=== PATIENT | male | born 1960 | race Two or more races ===

== ENCOUNTER 2024-01-10 10:24 | Emergency (ER) | payer OTHER ==
[~2024-01-10] VITALS: Ht 172.7 cm; Wt 88.5 kg
[2024-01-10] MEDS ORDERED: PRILOSEC OTC20 MG PO (10:56)
[2024-01-10] MEDS ORDERED: ONDANSETRON HCL 2 MG/ML VIAL IV ONE (11:30)
[2024-01-10] MEDS ORDERED: KETOROLAC TROMETHAMINE 60 MG VIAL IM ONE (11:30)
[2024-01-10] MEDS ORDERED: 0.9 % SODIUM CHLORIDE 1,000 ML IV ONE (11:30)
[2024-01-10] MEDS ORDERED: FAMOtidine 10 MG/ML (4ML VIAL) IV ONE (11:30)
[2024-01-10 12:27] LABS: HEMATOCRIT 42.3 % (39.0-48.0); HEMOGLOBIN 15.1 g/dL (13-16.00); MEAN CELL VOLUME 93.2 fL (80.0-100.00); MEAN CORPUSCULAR HEMOGLOBIN 33.3 pg (27.00-32.0); MEAN CORPUSCULAR HGB CONC 35.8 g/dl (32.0-36.0); PLATELET COUNT 235 K/uL (150-450); RED BLOOD COUNT 4.54 M/uL (4.00-6.00); RED CELL DISTRIBUTION WIDTH 12.3 % (11.5-14.5)
[2024-01-10 12:33] LABS: URINE APPEARANCE Cloudy; URINE BILIRRUBIN Negative (NEGATIVE); URINE BLOOD Negative; URINE COLOR Yellow; URINE GLUCOSE Negative (NEGATIVE); URINE KETONE Negative (NEGATIVE); URINE LEUKOCYTE Negative; URINE NITRATE Negative; URINE PROTEIN Negative (NEGATIVE); URINE UROBILINOGEN 0.2 E.U./dl
[2024-01-10 12:34] LABS: URINE BACTERIA 6.2 uL (0.0-1933); URINE EPITHELIAL CELLS 1.5 uL (0.0-38.8); URINE RBC 16.6 uL (0.0-20.8); URINE WBC 2.7 uL (0.0-23.2)
[2024-01-10 12:48] LABS: URINE CRYSTALS MODERATE /HPF
[2024-01-10 13:04] LABS: ALBUMIN 3.4 gm/dL (3.4-5.0); BILIRUBIN TOTAL 0.73 mg/dL (0.3-1.2); CALCIUM 9.6 mg/dL (8.5-10.1); CREATININE SERUM 1.06 mg/dL (0.70-1.30); GFR 71.02; GLOBULINA 3.5 G/DL (2.4-3.5); INR 0.99; PARTIAL THROMBOPLASTIN TIME 28.2 SECONDS (22.0-34.0); POTASSIUM 4.75 mEq/L (3.5-5.1); PROTHROMBIN TIME 10.8 SECONDS (9.0-11.5); TOTAL PROTEIN 6.9 gm/dL (6.4-8.2)
== END 2024-01-10 16:50 | disposition home or self-care (01) ==
LOC: ER 10:26
PROVIDERS: General Practice
DX: R10.31 Right lower quadrant pain (principal); K40.20 Bilateral inguinal hernia, without obstruction or gangrene, not specified as recurrent

== ENCOUNTER 2024-03-20 13:04 | Emergency (ER) | payer OTHER ==
[~2024-03-20] VITALS: Ht 172.7 cm; Wt 87.1 kg
[~2024-03-20 13:04] MED LIST: PRILOSEC OTC20 MG PO
[2024-03-20] MEDS ORDERED: KETOROLAC TROMETHAMINE 30 MG VIAL IV ONE (14:30)
[2024-03-20] MEDS ORDERED: 0.9 % SODIUM CHLORIDE 500 ML IV ONE (14:30)
[2024-03-20] MEDS ORDERED: FAMOTIDINE/PF 20 MG/2 ML VIAL IV ONE (14:30)
[2024-03-20 14:53] LABS: HEMATOCRIT 45.4 % (39.0-48.0); HEMOGLOBIN 15.8 g/dL (13-16.00); MEAN CELL VOLUME 92.7 fL (80.0-100.00); MEAN CORPUSCULAR HEMOGLOBIN 32.3 pg (27.00-32.0); MEAN CORPUSCULAR HGB CONC 34.8 g/dl (32.0-36.0); PLATELET COUNT 248 K/uL (150-450); RED BLOOD COUNT 4.89 M/uL (4.00-6.00); RED CELL DISTRIBUTION WIDTH 12.1 % (11.5-14.5)
[2024-03-20 14:55] LABS: PH,URINE 7.5 (5.0-8.0); URINE APPEARANCE Clear; URINE BILIRRUBIN Negative (NEGATIVE); URINE BLOOD Negative; URINE COLOR Yellow; URINE GLUCOSE Negative (NEGATIVE); URINE KETONE Negative (NEGATIVE); URINE LEUKOCYTE Negative; URINE NITRATE Negative; URINE PROTEIN Negative (NEGATIVE)
[2024-03-20 14:59] LABS: URINE BACTERIA 0 uL (0.0-1933); URINE EPITHELIAL CELLS 0.3 uL (0.0-38.8); URINE RBC 0.1 uL (0.0-20.8); URINE WBC 1.5 uL (0.0-23.2)
[2024-03-20 15:11] LABS: INR 1.03; PARTIAL THROMBOPLASTIN TIME 28.2 SECONDS (22.0-34.0); PROTHROMBIN TIME 11.2 SECONDS (9.0-11.5)
[2024-03-20 15:19] LABS: ALBUMIN 3.5 gm/dL (3.4-5.0); BILIRUBIN TOTAL 0.79 mg/dL (0.3-1.2); CALCIUM 9.5 mg/dL (8.5-10.1); CREATININE SERUM 1.04 mg/dL (0.70-1.30); GFR 72.36; GLOBULINA 3.5 G/DL (2.4-3.5); POTASSIUM 4.56 mEq/L (3.5-5.1)
== END 2024-03-20 21:06 | disposition home or self-care (01) ==
LOC: ER 13:06
PROVIDERS: Nurse Practitioner Family
DX: R10.31 Right lower quadrant pain (principal); I10 Essential (primary) hypertension; K27.9 Peptic ulcer, site unspecified, unspecified as acute or chronic, without hemorrhage or perforation; K29.70 Gastritis, unspecified, without bleeding

== ENCOUNTER → 2024-03-28 | Emergency (ER) | payer OTHER ==
[~2024-03-28] VITALS: Ht 172.7 cm; Wt 88.5 kg
[~2024-03-28] MED LIST changes: +FAMOtidine 10 MG/ML (4ML VIAL) IV PUSH ONE; +ONDANSETRON HCL 2 MG/ML VIAL IM ONE
[2024-03-28 21:56] LABS: HEMOGLOBIN 15.8 g/dL (13-16.00); MEAN CELL VOLUME 92.9 fL (80.0-100.00); MEAN CORPUSCULAR HEMOGLOBIN 32.5 pg (27.00-32.0); PLATELET COUNT 231 K/uL (150-450); RED BLOOD COUNT 4.84 M/uL (4.00-6.00); RED CELL DISTRIBUTION WIDTH 12.1 % (11.5-14.5)
[2024-03-28 22:27] LABS: ALBUMIN 3.2 gm/dL (3.4-5.0); BILIRUBIN TOTAL 0.47 mg/dL (0.3-1.2); CALCIUM 8.9 mg/dL (8.5-10.1); CREATININE SERUM 1.26 mg/dL (0.70-1.30); GFR 57.99; GLOBULINA 3.5 G/DL (2.4-3.5); POTASSIUM 4.26 mEq/L (3.5-5.1); TOTAL PROTEIN 6.7 gm/dL (6.4-8.2)
== END | disposition left against medical advice (07) ==
LOC: ER 20:40
PROVIDERS: General Practice
DX: R11.10 Vomiting, unspecified (principal); K21.9 Gastro-esophageal reflux disease without esophagitis
CPT/HCPCS: 36415; 93005; 96365; 96372; 99282; J2405; J3490

== ENCOUNTER 2024-04-16 06:34 | Emergency (ER) | payer OTHER ==
[~2024-04-16] VITALS: Ht 172.7 cm; Wt 87.1 kg
[~2024-04-16 06:34] MED LIST changes: -FAMOtidine 10 MG/ML (4ML VIAL) IV PUSH ONE; -ONDANSETRON HCL 2 MG/ML VIAL IM ONE
[2024-04-16 08:55] LABS: HEMATOCRIT 46.2 % (39.0-48.0); HEMOGLOBIN 16.2 g/dL (13-16.00); MEAN CELL VOLUME 91.3 fL (80.0-100.00); MEAN CORPUSCULAR HGB CONC 35.1 g/dl (32.0-36.0); PLATELET COUNT 240 K/uL (150-450); RED BLOOD COUNT 5.06 M/uL (4.00-6.00); RED CELL DISTRIBUTION WIDTH 12.5 % (11.5-14.5)
== END 2024-04-16 12:39 | disposition home or self-care (01) ==
LOC: ER 06:36
PROVIDERS: Emergency Medicine
DX: R51.9 Headache, unspecified (principal); R11.10 Vomiting, unspecified; Z20.822 Contact with and (suspected) exposure to COVID-19; I10 Essential (primary) hypertension

== ENCOUNTER 2024-08-10 12:09 | Emergency (ER) | payer OTHER ==
[~2024-08-10] VITALS: Ht 172.7 cm; Wt 87.1 kg
[2024-08-10] MEDS ORDERED: GAVISCON EXTRA355 ML PO (12:37)
[2024-08-10] MEDS ORDERED: 0.9 % SODIUM CHLORIDE 1,000 ML IV SCH (13:43)
[2024-08-10 14:38] LABS: HEMATOCRIT 47.3 % (39.0-48.0); HEMOGLOBIN 16.4 g/dL (13-16.00); MEAN CELL VOLUME 93.2 fL (80.0-100.00); MEAN CORPUSCULAR HEMOGLOBIN 32.3 pg (27.00-32.0); MEAN CORPUSCULAR HGB CONC 34.7 g/dl (32.0-36.0); PLATELET COUNT 240 K/uL (150-450); RED BLOOD COUNT 5.08 M/uL (4.00-6.00); RED CELL DISTRIBUTION WIDTH 12.3 % (11.5-14.5)
[2024-08-10 15:17] LABS: ALBUMIN 3.9 gm/dL (3.4-5.0); BILIRUBIN TOTAL 0.74 mg/dL (0.3-1.2); CALCIUM 10.2 mg/dL (8.5-10.1); CREATININE SERUM 1.02 mg/dL (0.70-1.30); GLOBULINA 3.8 G/DL (2.4-3.5); POTASSIUM 4.3 mEq/L (3.5-5.1); TOTAL PROTEIN 7.7 gm/dL (6.4-8.2)
== END 2024-08-10 17:13 | disposition home or self-care (01) ==
LOC: ER 12:09
PROVIDERS: Emergency Medicine
DX: R10.84 Generalized abdominal pain (principal)

== ENCOUNTER 2024-10-04 15:55 | Emergency (ER) | payer OTHER ==
[~2024-10-04] VITALS: Ht 180.3 cm; Wt 86.2 kg
[~2024-10-04 15:55] MED LIST changes: +GAVISCON EXTRA355 ML PO
[2024-10-04] MEDS ORDERED: ZESTRIL2.5 MG (17:07)
[2024-10-04] MEDS ORDERED: CLONIDINE HCL 0.1 MG TABLET PO ONE ×2 (17:14→17:15)
[2024-10-04] MEDS ORDERED: KETOROLAC TROMETHAMINE 60 MG VIAL IM ONE ×2 (17:14→17:15)
[2024-10-04 17:34] LABS: BASO % 0.3 % (0.1-1.2); EOS # 0.05 (0.04-0.54); EOS % 0.5 % (0.7-7.0); HEMATOCRIT 41.6 % (40.1-51.0); HEMOGLOBIN 14.9 g/dL (13.7-17.5); LYMPH % 17.3 % (19.3-53.1); MEAN CORPUSCULAR HEMOGLOBIN 31.6 pg (25.6-32.2); MONO # 0.93 (0.24-0.82); MONO % 9.5 % (4.7-12.5); NEUT # 7.02 (1.56-6.13); NEUT % 71.4 % (34.0-71.1); PLATELET COUNT 262 K/uL (163-369); RED BLOOD COUNT 4.72 M/uL (4.63-6.08); RED CELL DISTRIBUTION WIDTH 11.1 % (11.6-14.4)
[2024-10-04 18:00] LABS: ALBUMIN 3.5 gm/dL (3.4-5.0); BILIRUBIN TOTAL 0.69 mg/dL (0.3-1.2); CALCIUM 8.7 mg/dL (8.5-10.1); CREATININE SERUM 1.38 mg/dL (0.70-1.30); GFR 52.21; GLOBULINA 3.5 G/DL (2.4-3.5); POTASSIUM 4.48 mEq/L (3.5-5.1)
[2024-10-04 18:06] LABS: COVID-19 AG NEGATIVE (NEGATIVE)
[2024-10-04 18:08] LABS: INFLUENZA A AG NEGATIVE (NEGATIVE); INFLUENZA B AG POSITIVE (NEGATIVE)
[2024-10-04] MEDS ORDERED: OSELTAMIVIR PHOSPHATE 75 MG CAPSULE PO ONE ×2 (18:15→18:24)
[2024-10-04] MEDS ORDERED: OSEL75CA PO (18:20)
== END 2024-10-04 18:39 | disposition home or self-care (01) ==
LOC: ER 16:15
PROVIDERS: General Practice
DX: J10.1 Influenza due to other identified influenza virus with other respiratory manifestations (principal); G44.209 Tension-type headache, unspecified, not intractable; Z20.822 Contact with and (suspected) exposure to COVID-19; I10 Essential (primary) hypertension

== ENCOUNTER 2025-01-01 11:53 | Emergency (ER) | payer OTHER ==
[~2025-01-01] VITALS: Ht 172.7 cm; Wt 87.1 kg
[~2025-01-01 11:53] MED LIST changes: +OSEL75CA PO; +ZESTRIL2.5 MG
[2025-01-01] MEDS ORDERED: KETOROLAC TROMETHAMINE 60 MG VIAL IM ONE (14:00)
[2025-01-01] MEDS ORDERED: FAMOTIDINE/PF 20 MG/2 ML VIAL IV ONE (14:00)
[2025-01-01] MEDS ORDERED: MAG HYDROX/ALUMINUM HYD/SIMETH 30 ML BLIST.PACK PO ONE (14:00)
[2025-01-01 14:23] LABS: BASO % 0.3 % (0.1-1.2); EOS # 0.03 (0.04-0.54); EOS % 0.3 % (0.7-7.0); LYMPH # 1.18 (1.18-3.74); LYMPH % 13.4 % (19.3-53.1); MEAN PLATELET VOLUME 9.50 fl (9.4-12.4); MONO # 0.94 (0.24-0.82); MONO % 10.7 % (4.7-12.5); NEUT # 6.54 (1.56-6.13); NEUT % 74.6 % (34.0-71.1); RED CELL DISTRIBUTION WIDTH 11.0 % (11.6-14.4)
[2025-01-01 14:56] LABS: ALT/SGPT 25.0 U/L (12-78); AST/SGOT 15.0 U/L (15-37); BILIRUBIN TOTAL 0.53 mg/dL (0.3-1.2); BUN CREA RATIO 13.0 (7.0-25.0); CREATININE SERUM 1.06 mg/dL (0.70-1.30); GFR 70.79; GLOBULINA 3.9 G/DL (2.4-3.5); GLUCOSE FASTING 95.0 mg/dL (65-100); OSMOLALITY SERUM 280.0 MOSM/KG (275-295)
== END 2025-01-01 16:30 | disposition home or self-care (01) ==
LOC: ER 11:53
PROVIDERS: General Practice
DX: R09.81 Nasal congestion (principal); R07.89 Other chest pain; I10 Essential (primary) hypertension

== ENCOUNTER 2025-02-14 17:44 | Emergency (ER) | payer OTHER ==
[~2025-02-14] VITALS: Ht 172.7 cm; Wt 87.1 kg
[~2025-02-14 17:44] MED LIST changes: +ZTLIDO1 EACH PO
[2025-02-14] MEDS ORDERED: PRILOSEC10 MG PO (19:25)
[2025-02-14] MEDS ORDERED: FAMOTIDINE/PF 20 MG/2 ML VIAL IV ONE (20:00)
[2025-02-14] MEDS ORDERED: MORPHINE SULFATE 4 MG/ML CARTRIDGE IV ONE (20:00)
[2025-02-14 21:28] LABS: BASO % 0.4 % (0.1-1.2); EOS # 0.02 (0.04-0.54); EOS % 0.2 % (0.7-7.0); LYMPH # 2.13 (1.18-3.74); LYMPH % 22.4 % (19.3-53.1); MEAN PLATELET VOLUME 9.60 fl (9.4-12.4); MONO # 1.03 (0.24-0.82); MONO % 10.8 % (4.7-12.5); NEUT # 6.23 (1.56-6.13); NEUT % 65.7 % (34.0-71.1); RED CELL DISTRIBUTION WIDTH 11.2 % (11.6-14.4)
[2025-02-14 21:52] LABS: ERYTHROCYTE SEDIMENTATION RATE 4 mm/hr (0-20)
[2025-02-14 21:54] LABS: INR 1.05
[2025-02-14 22:21] LABS: ALT/SGPT 24.0 U/L (12-78); AST/SGOT 17.0 U/L (15-37); BILIRUBIN TOTAL 1.18 mg/dL (0.3-1.2); BUN CREA RATIO 17.0 (7.0-25.0); CREATININE SERUM 1.79 mg/dL (0.70-1.30); GFR 38.67; GLOBULINA 3.9 G/DL (2.4-3.5); GLUCOSE FASTING 184.0 mg/dL (65-100); OSMOLALITY SERUM 289.0 MOSM/KG (275-295)
[2025-02-14 23:28] LABS: URINE APPEARANCE Cloudy; URINE BILIRRUBIN Small (NEGATIVE); URINE BLOOD Negative; URINE COLOR Dark Yellow; URINE GLUCOSE Negative (NEGATIVE); URINE KETONE 15 (NEGATIVE); URINE LEUKOCYTE Trace; URINE NITRATE Negative; URINE PROTEIN 30 (NEGATIVE); URINE UROBILINOGEN 1.0 E.U./dl
[2025-02-14 23:32] LABS: URINE BACTERIA 54.0 uL (0.0-1933); URINE EPITHELIAL CELLS 33.2 uL (0.0-38.8); URINE RBC 12.6 uL (0.0-20.8); URINE WBC 11.5 uL (0.0-23.2)
[2025-02-15 00:06] LABS: URINE CAST > 21.83 uL (0.0-1.40)
[2025-02-15 00:07] LABS: URINE CRYSTALS FEW /HPF; URINE MUCUS HEAVY
[2025-02-15] MEDS ORDERED: RINGERS SOLUTION,LACTATED 1,000 ML IV ONE (02:45)
== END 2025-02-15 09:34 ==
LOC: ER 17:45
PROVIDERS: General Practice
DX: K40.90 Unilateral inguinal hernia, without obstruction or gangrene, not specified as recurrent (principal); R10.9 Unspecified abdominal pain
CPT/HCPCS: 36415; 74177; 93005; Q9965

== ENCOUNTER 2025-03-13 07:00 | Day surgery (SDC) | payer OTHER ==
[2025-03-05 12:42] VITALS: BP 154/91
[~2025-03-13] VITALS: Ht 172.7 cm; Wt 83.9 kg
[~2025-03-13 07:00] MED LIST changes: +PRILOSEC10 MG PO
[2025-03-13] MEDS ORDERED: CEFAZOLIN SODIUM 1,000 MG VIAL IV SCH (08:30)
[2025-03-13] MEDS ORDERED: SUGAMMADEX SODIUM 200 MG/2 ML VIAL IV ONE (09:45)
[2025-03-13] MEDS ORDERED: FAMOTIDINE/PF 20 MG/2 ML VIAL IV PUSH ONE (09:45)
== END 2025-03-13 13:00 | disposition home or self-care (01) ==
LOC: CIR.AMB 07:00
PROVIDERS: ATTEND Student in an Organized Health Care Education/Training Program
DX: K40.90 Unilateral inguinal hernia, without obstruction or gangrene, not specified as recurrent (principal)
CPT/HCPCS: 49650; C1781

== ENCOUNTER 2025-03-18 14:28 | Emergency (ER) | payer OTHER ==
[~2025-03-18] VITALS: Ht 172.7 cm; Wt 83.9 kg
[2025-03-18] MEDS ORDERED: BUTALB/ACETAMINOPHEN/CAFFEINE 1 TAB TABLET PO ONE (17:45)
[2025-03-18 18:48] LABS: BASO % 0.5 % (0.1-1.2); EOS # 0.16 (0.04-0.54); EOS % 1.6 % (0.7-7.0); LYMPH # 2.08 (1.18-3.74); LYMPH % 21.1 % (19.3-53.1); MEAN PLATELET VOLUME 9.40 fl (9.4-12.4); MONO # 1.12 (0.24-0.82); MONO % 11.3 % (4.7-12.5); NEUT # 6.36 (1.56-6.13); NEUT % 64.4 % (34.0-71.1); RED CELL DISTRIBUTION WIDTH 11.3 % (11.6-14.4)
[2025-03-18 18:54] LABS: COVID-19 AG NEGATIVE (NEGATIVE)
[2025-03-18] MEDS ORDERED: OSEL75CA PO (19:16)
[2025-03-18] MEDS ORDERED: PEPCID AC20 MG PO (19:16)
== END 2025-03-18 19:42 | disposition home or self-care (01) ==
LOC: ER 14:29
PROVIDERS: General Practice
DX: J10.1 Influenza due to other identified influenza virus with other respiratory manifestations (principal); Z20.822 Contact with and (suspected) exposure to COVID-19